=== PATIENT | female | born 1955 | race Caucasian/White ===

== ENCOUNTER → 2016-11-12 | Outpatient (CLI) | payer OTHER ==
[~2016-11-12] MED LIST: ASPIRIN E.C. 8181 MG PO; FISH OIL1 POW PO; LISINOPRIL/HCTZ1 TA1 PO; METFORMIN XR500 MG PO; MULTIPLE VITAMI1 CAP PO; ZOCOR20 MG PO
== END ==
LOC: MC.RAD 08:00
DX: Z12.31 Encounter for screening mammogram for malignant neoplasm of breast (principal)

== ENCOUNTER → 2018-02-18 | Outpatient (CLI) | payer BC | LOC: MC.RAD 09:12 | DX: Z12.31 Encounter for screening mammogram for malignant neoplasm of breast (principal) ==

== ENCOUNTER → 2019-02-22 | Outpatient (CLI) | payer BC | LOC: MC.RAD 15:58 | DX: Z12.31 Encounter for screening mammogram for malignant neoplasm of breast (principal) ==

== ENCOUNTER → 2020-12-03 | Outpatient (CLI) | payer BC, MEDICARE | LOC: MC.RAD 13:15 | DX: Z12.31 Encounter for screening mammogram for malignant neoplasm of breast (principal) ==

== ENCOUNTER → 2021-12-04 | Outpatient (CLI) | payer MEDICARE, BC | LOC: MC.RAD 13:07 | DX: Z12.31 Encounter for screening mammogram for malignant neoplasm of breast (principal) ==

== ENCOUNTER → 2023-01-20 | Outpatient (CLI) | payer MEDICARE, BC | LOC: MC.RAD 14:30 | DX: Z12.31 Encounter for screening mammogram for malignant neoplasm of breast (principal) ==

== ENCOUNTER → 2024-01-22 | Outpatient (CLI) | payer MEDICARE, BC | LOC: MC.RAD 14:21 | DX: Z12.31 Encounter for screening mammogram for malignant neoplasm of breast (principal) ==